=== PATIENT | male | born 1955 | race Caucasian/White ===

== ENCOUNTER → 2019-09-12 14:12 | Outpatient (CLI) | payer OTHER, SELFPAY ==
--- NOTE | ~2019-09-12 | XR_ITS ---
EXAMINATION: XR chest 2V DATE: 09/12/2019 14:50 INDICATION: Former smoker. TECHNIQUE: Frontal and lateral views of the chest were obtained. COMPARISON: Chest 2 views 05/12/2010 FINDINGS: The chest demonstrates clear lungs without pneumonia, pleural effusion, or pneumothorax. Th e heart size is normal. IMPRESSION: 1. No acute cardiopulmonary disease. Reviewed, dictated and finalized at location A.
--- NOTE | ~2019-09-12 | XR_ITS ---
XR_CERV2-3V_CR DATE: 09/12/2019 14:50 INDICATION: Radiculopathy, cervical region TECHNIQUE: Standing AP, open-mouth, lateral and swimmer views COMPARISON: None FINDINGS: C1 and C2 are normally aligned and the odontoid process is intact. No fracture or dislocati on or locked facet or prevertebral soft tissue swelling is evident. There is prominent anterior degen erative spurring of the C3, C4 and C5 as well as C6 vertebral bodies. The interspaces are well preser suly. IMPRESSION: Degenerative spurring without significant interspace compromise Reviewed, dictated and finalized at Location A. Reviewed, dictated and finalized at location A.
== END ==
PROVIDERS: PCP Family Medicine; Visit Provider Physician Assistant
DX: M54.12 Radiculopathy, cervical region (principal); Z87.891 Personal history of nicotine dependence; M77.8 Other enthesopathies, not elsewhere classified; M46.02 Spinal enthesopathy, cervical region
CPT/HCPCS: 71046; 72040

== ENCOUNTER 2019-12-06 16:44 | Emergency (ER) | payer OTHER, SELFPAY ==
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
[2019-12-06 17:15] VITALS: BP 164/76; PULSE 71; RESP 16; TEMP 36.7; O2SAT 100
[2019-12-06] MEDS: TETANUS,DIPHTHERIA,AC PERTUSSIS ADULT (0.5 ML) BOOSTRIX IM (18:02)
== END 2019-12-06 18:16 | disposition home or self-care (01) ==
PROVIDERS: Emergency Provider Nurse Practitioner Family; PCP Family Medicine
DX: S61.411A Laceration without foreign body of right hand, initial encounter (principal); W25.XXXA Contact with sharp glass, initial encounter; Z23 Encounter for immunization; I10 Essential (primary) hypertension; E78.5 Hyperlipidemia, unspecified; E78.00 Pure hypercholesterolemia, unspecified; R73.03 Prediabetes
CPT/HCPCS: 90471; 90715; 99213; G0463

== ENCOUNTER 2024-02-10 03:56 | Emergency (ER) | payer MEDICARE, OTHER, SELFPAY ==
--- OUTSIDE RECORDS SUMMARY | 2024-02-10 03:59 | XMS_ITS | Data Portability ---
Author Organization [facility] Mccullough Cli fior Elisa, zzOHIREN [facility] IP Address [address] [place] [address] Assessment No assessment recorded. Plan of Treatment Reminders Order Date Submit Date Provider Last Modified By Organization Details Last Modified Time Details Appointments None recorded. Lab None recorded. Referral None recorded. Procedures None recorded. Surgeries None recorded. Imaging None recorded. Medication Orders permethrin 5 % topical cream [address] [facility][id number], [address] [place] [address], [id number], 4 12:18:04 triamcinolo ne acetonide 0.1 % topical cream [address] [facility] #[id number], [address] [place] [address], [id number], 4 12:18:06 hydroxyzine HCl 25 mg tablet [address] [facility] #[id number], [address] [place] [address], [id number], 4 12:18:03 dexamethaso ne sodium phosphate 4 mg/mL injection solution 2023 024 [email or web address] Not available 4 18:38:58 Depo-Medrol 40 mg/mL suspension for injection 2023 024 [email or web address] Not available 4 18:39:40 Patient TargetsNo targets recorded. Patient Instructions Encounter Date Encounter Id Patient Instructions Last Modified By Organization Details Last Modified Time 04/12/2023 [id number] bedbugs: care instructions [email or web address] Not available 04/12/2023 12:22:08 - Only use mild, unscented products. Avoid scratching. Cool compresses. Home cleaning measures reviewed. - Avoid heat, stress, or strenuous activity. - Take hydroxyzine for itching. - Gave at clinic. Patient tolerated well. - RTC for follow up as needed for any concerns. [email or web address] Not available 04/12/2023 12:27:02 Reason for Referral None Reported. Procedures Surgical History Date Name Laterality Status Provider Name and Address Organization Details Recorded Time Orthopedic Surgery completed Reba Aquino RN [facility] 04/12/2023 12:09:04 Imaging Results None recorded. Procedure Notes None recorded. Medical Equipment None Reported. Allergies No known drug allergies Medications Name Sig Start Date Stop Date Status Note LastModified by Organization Details LastModified Time Depo-Medrol 40 mg/mL suspension for injection Take 40 mg by injection route. 2023 active Not Available Not Available Not Avai lable permethrin 5 % topical cream APPLY (THOROUGHLY MASSAGE INTO SKIN FROM HEAD TO SOLES OF FEET) BY TOPICAL ROUTE ONCE LEAVE ON FOR 8-14 HR, THEN REMOVE BY THOROUGH WASHING. May repeat in 2 weeks. 2023 active Not Available Not Available Not Avai lable triamcinolon e acetonide 0.1 % topical cream APPLY THIN LAYER TOPICALLY TO THE AFFECTED AREA TWICE DAILY FOR UP TO 2 WEEKS NEEDED active Not Available Not Available No t Available lisinopril 30 mg tablet TAKE 1 TABLET BY MOUTH DAILY active Not Available Not Available Not Available hydroxyzine HCl 25 mg tablet Take 1 tablet 3 times a day by oral route as needed. 2023 active Not Available Not Available Not Avai lable dexamethason e sodium phosphate 4 mg/mL injection solution Inject 4 mg by intramuscul ar route. 2023 active Not Available Not Available Not Avai lable Vitals Date Recorded Body height Body mass index (BMI) Body weight Body temperature Heart rate Respiratory rate Oxygen saturation Oxygen saturation in Arterial blood by Pulse oximetry Systolic blood pressure Diastolic blood pressure Provider Name and Address Organization Details Last Updated DateTime 170.18 cm 32.1 kg/m2 74355.4 4 g 98.2 [degF] 58 /min 18 /min 96 % 96 % 191 mm[Hg] 91 mm[Hg] Reba Aquino RN [facility] Elisa 12:08:22 Social History None recorded. Functional Status None recorded. Mental Status None recorded. Family History Nothing Reported. Medical History No medical history recorded. Past Encounters Encounter ID Performer Location Encounter Start Date Encounter Closed Date Diagnosis/Indication Diagnosis SNOMED-CT Code Diagnosis ICD10 Code [id number] CANDELARIA CHACON NP [facility] [address] [facility] [place] [address] 04/12/2023 11:21:06 04/13/2023 10:23:53 Infestation by bed bug 97428048 B88.8 Health Concerns Section Related Observation LastModified by Organization Detai ls LastModified Time None Recorded Concern Status LastModified by Organization Details LastModified Time None Recorded Advance Directives Directive None Recorded Payers Encounter Date Sequence Insurance Name Policy Number Policy Mayo Covered Member ID Mayo Member ID Guarantor Name 04/12/2023 1 MEDICARE-[place] (MEDICARE) Justo Cm Sr [id number] Justo Cm 04/12/2023 2 [facility] (MEDICARE SUPPLEMENT) Justo Cm [id number] Justo Cm Notes Date Note Type Note Provider Name and Address Organization Details Recorded Time 04/12/2023 text/html 67 yo male presents to clinic with c/o rash and pruritis. Sx started 2 days ago. Believes that he may be having hives from laundry detergent. CANDELARIA CHACON NP [address], [place], [address], [facility] 04/12/2023 12:47:30
[2024-02-10 04:01] VITALS: BP 144/76; PULSE 68; RESP 20; TEMP 36.5; O2SAT 98
== END 2024-02-10 06:08 | disposition left against medical advice (07) ==
LOC: ANHED 05:38
PROVIDERS: PCP Nurse Practitioner Family
DX: S29.9XXA Unspecified injury of thorax, initial encounter (principal); W10.9XXA Fall (on) (from) unspecified stairs and steps, initial encounter
CPT/HCPCS: 99199

== ENCOUNTER 2024-11-22 11:35 | Emergency (ER) | payer MEDICARE, SELFPAY ==
[2024-11-22] VITALS (8 sets, daily range): BP systolic 169–215; BP diastolic 86–99; PULSE 56–65; RESP 13–20; TEMP 36.7–36.8; O2SAT 97–98
--- NOTE | ~2024-11-22 | XR_ITS ---
EXAMINATION: XR chest 1V portable 11/22/2024 14:47 INDICATION: Shortness of breath PROCEDURE: AP portable chest COMPARISON: 09/12/2019 FINDINGS: The lungs are clear. The cardiomediastinal silhouette is within normal limits. There are no pleural effusions. There is no pneumothorax suspected. IMPRESSION: 1: NO ACUTE CARDIOPULMONARY DISEASE. Reviewed, dictated and finalized at location O.
--- NOTE | 2024-11-22 11:44 | ECG_ITS ---
Test Date: 2024-11-22 11:48:07 Measurements Intervals Mary Esther Rate: 62 P: 20 IN: 134 QRS: 36 QRSD: 89 T: 63 QT: 420 QTc: 429 Interpretive Statements SINUS RHYTHM WITH SINUS ARRHYTHMIA possibel old septal infarct No previous ECG available for comparison Electronically Signed On 11-22-2024 15:25:46 CDT by Lit Woodson M.D.
[2024-11-22 15:03] LABS: Hematocrit 48.8 % (42.0-52.0); Hemoglobin 17.1 g/dL (14.0-18.0); Immature Granulocyte Percent A 0.8 % (0-0.5); Lymphocytes Absolute Auto 1.72 K/mm3 (0.9-3.2); Mean Corpuscular HGB Conc 35.0 g/dl (32-36); Mean Corpuscular Hemoglobin 32.5 pg (26-34); Mean Corpuscular Volume 92.8 fl (80-100); Nucleated Red Blood Cells Absolute Auto 0.000 K/mm3 (0.0-0.012); Nucleated Red Blood Cells Perc 0.0 % (0.0-0.2); Platelet Count Result 210 k/mm3 (150-375); Red Blood Count 5.26 M/mm3 (4.6-6.20); White Blood Count 7.9 K/mm3 (4.5-10.0)
[2024-11-22 15:13] LABS: Alanine Aminotransferase 97 U/L (6-50); Albumin Level 4.4 g/dL (3.5-5.1); Alkaline Phosphatase 89 U/L (38-126); Anion Gap 9 mmol/L (4-12); Aspartate Amino Transferase 95 U/L (17-59); Bilirubin,Total 1.6 mg/dL (0.2-1.3); Blood Urea Nitrogen 9 mg/dL (9-20); Calcium 9.3 mg/dL (8.4-10.2); Carbon Dioxide 26 mmol/L (22-30); Chloride 100 mmol/L (98-107); Estimated CRCL calculation 105 ml/min; Estimated Glomerular Filt Rate > 60; Glucose 102 mg/dL (65-110); Potassium 4.4 mmol/L (3.4-5.0); Sodium 135 mmol/L (137-145); Total Protein 8.0 g/dL (6.3-8.2)
--- NOTE | 2024-11-22 15:16 | ED_ITS ---
HPI - General Adult General Chief complaint: Shortness of Breath/Dyspnea Stated complaint: SOB Time Seen by Provider: 11/22/24 14:33 History of Present Illness HPI narrative: 68-year-old male presents emergency department for evaluation for shortness breath has been worsening since yesterday. Patient states the shortness breath is worsened with exertion. Patient denies any associated chest pain with this. Patient does have a history of COPD and does report he quit smoking in 2019. Patient denies any prior cardiac history. Patient denies any falls or injury. Patient denies any new lower extremity tenderness or swelling. 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 History of nicotine dependence Hypercholesterolemia Obesity (BMI 30.0-34.9) Prediabetes Surgical History Surgical History H/O eye surgery History of orthopedic surgery Left ankle due to fracture Family History Family History Sibling Diabetes mellitus Father Hypertension Mother Hypertension Grandparent Family history of cardiovascular disease, Onset Age: 62 Acute myocardial infarction Other No family history of malignant neoplasm Social History Social History Smoking packs per day: 1 Smoking cigarettes per day: 20.0 Years smoked: 45 Smoking pack-years: 45.00 Smoking status: Former smoker Tobacco type: cigarettes Alcohol intake: current Substance use type: does not use Exam 2 Narrative: APPEARANCE: Well appearing, no pain, no distress, well-nourished. HEAD: normocephalic, atraumatic. EYES: PERRLA/EOMI, conjunctivae clear. NOSE: Normal no drainage EARS:TMS clear with good light reflex. THROAT: Pharynx clear, no exudate. NECK: Supple. No adenopathy, no masses. RESPIRATORY: Decreased lung sounds bilaterally CARDIOVASCULAR: Regular rate and rhythm without murmurs rubs or gallops. ABDOMINAL: Soft, nontender, nondistended, normal bowel sounds MUSCULOSKELETAL: Moves all extremities. Strength/ROM intact, No edema, No calf tenderness. NEURO: Alert. Cranial nerves II through XII intact. Good gait. Good coordination SKIN: Warm, dry. Normal Color Course Vital Signs Vital signs: Vital Signs Temperature 98.1 F 11/22/24 11:55 Pulse Rate 62 11/22/24 11:55 Respiratory Rate 18 11/22/24 11:55 Blood Pressure 213/92 H 11/22/24 11:55 Pulse Oximetry 98 11/22/24 11:55 Temperature 98.3 F 11/22/24 14:34 Pulse Rate 60 11/22/24 18:12 Respiratory Rate 16 11/22/24 18:12 Blood Pressure 169/94 H 11/22/24 18:12 Pulse Oximetry 98 11/22/24 18:12 Oxygen Delivery Autopap 11/22/24 14:41 Medical Decision Making MDM Narrative Medical decision making narrative: 68-year-old male presents to the emergency department for for evaluation of exertional shortness of breath. Patient does have a remote smoking history. Patient no longer smokes. Patient is afebrile no leukocytosis hemoglobin is up 2.1. Patient has a negative D-dimer. Patient has no significant acute abnormalities on his CMP his proBNP is mildly elevated at 197. Patient was negative for influenza RSV and for COVID. Chest x-ray shows no acute cardiopulmonary disease. On re-evaluation patient does feel significantly improved after the breathing treatment. Patient will be discharged home with antibiotics for suspected COPD exacerbation. Differential Diagnosis Differential Diagnosis: COVID, RSV, influenza, pneumonia, COPD Vital Signs Vital Signs: Vital Signs Temperature 98.1 F 11/22/24 11:55 Pulse Rate 62 11/22/24 11:55 Respiratory Rate 18 11/22/24 11:55 Blood Pressure 213/92 H 11/22/24 11:55 Pulse Oximetry 98 11/22/24 11:55 Temperature 98.3 F 11/22/24 14:34 Pulse Rate 60 11/22/24 18:12 Respiratory Rate 16 11/22/24 18:12 Blood Pressure 169/94 H 11/22/24 18:12 Pulse Oximetry 98 11/22/24 18:12 Oxygen Delivery Autopap 11/22/24 14:41 Lab Data Lab results reviewed: Yes I reviewed the patient's lab results. 11/22/24 14:54 11/22/24 14:54 Labs: Lab Results 11/22/24 11/22/24 Range/Units 14:42 14:54 WBC 7.9 (4.5-10.0) K/mm3 RBC 5.26 (4.6-6.20) M/mm3 Hgb 17.1 (14.0-18.0) g/dL Hct 48.8 (42.0-52.0) % MCV 92.8 (80-100) fl MCH 32.5 (26-34) pg MCHC 35.0 (32-36) g/dl RDW 12.5 (11.5-14.5) % Plt Count 210 (150-375) k/mm3 MPV 9.2 (7.4-10.4) fl Immature Gran % (Auto) 0.8 H (0-0.5) % Neut % (Auto) 61.3 (45.5-73.1) % Lymph % (Auto) 21.9 (18.3-44.2) % Garland % (Auto) 12.5 H (2.6-8.5) % Eos % (Auto) 1.8 (0-4.4) % Baso % (Auto) 1.7 H (0.2-1.2) % Lymph # (Auto) 1.72 (0.9-3.2) K/mm3 Garland # (Auto) 1.0 H (0.1-0.6) K/mm3 Eos # (Auto) 0.1 (0-0.3) K/mm3 Baso # (Auto) 0.1 (0.0-0.1) K/mm3 Abs Immat Gran (auto) 0.06 H (0.00-0.031) K/mm3 Absolute Neuts (auto) 4.8 (1.3-6.7) K/mm3 Absolute Nucleated RBC 0.000 (0.0-0.012) K/mm3 Nucleated RBC % 0.0 (0.0-0.2) % D-Dimer < 0.27 (<0.48) ug/mL Sodium 135 L (137-145) mmol/L Potassium 4.4 (3.4-5.0) mmol/L Chloride 100 (98-107) mmol/L Carbon Dioxide 26 (22-30) mmol/L Anion Gap 9 (4-12) mmol/L BUN 9 (9-20) mg/dL Creatinine 0.65 L (0.7-1.3) mg/dL Estim Creat Clear Calc 105 ml/min Estimated GFR > 60 (59 - ) Glucose 102 (65-110) mg/dL Calcium 9.3 (8.4-10.2) mg/dL Total Bilirubin 1.6 H (0.2-1.3) mg/dL AST 95 H (17-59) U/L ALT 97 H (6-50) U/L Alkaline Phosphatase 89 (38-126) U/L NT-Pro-B Natriuret Pep 197 H (19.9-100) pg/mL Total Protein 8.0 (6.3-8.2) g/dL Albumin 4.4 (3.5-5.1) g/dL Influenza A (RT-PCR) Negative (Negative) Influenza B (RT-PCR) Negative (Negative) RSV (RT-PCR) Negative (Negative) SARS-CoV-2 RNA (RT-PCR) Negative (Negative) Imaging Data My impression: Chest x-ray: No acute cardiopulmonary abnormality Radiologist's impression: Impressions Chest X-Ray 11/22/24 14:53 IMPRESSION: 1: NO ACUTE CARDIOPULMONARY DISEASE. ECG Data EKG #1: EKG Interpretation: normal rate, sinus rhythm, no ectopy, non-specific ST changes, normal QRS, normal QT and NL axis Discharge Plan Discharge Clinical Impression: Exertional shortness of breath Patient Disposition: Home Condition: Stable Instructions: Antibiotic Form, Dyspnea (ED) Additional Instructions: Antibiotic as directed until completed. Prednisone as directed for the next 5 days. Albuterol inhaler as needed for shortness of breath. Have close follow- up with your primary care physician Patient Language: Nigerien Prescriptions: New azithromycin 250 mg tablet See Rx Instructions .ROUTE .COMPLEX Qty: 6 0RF Rx Instructions: For 250 mg dose pack: take 500 mg today (day 1), then 250 mg for 4 days (days 2-5) prednisone 50 mg tablet 50 mg PO DAILY 5 Days Qty: 5 0RF albuterol sulfate 90 mcg/actuation HFA aerosol inhaler 1 puff inhalation QID Qty: 6.7 0RF amoxicillin-pot clavulanate 875-125 mg tablet 1 tablet PO Q12H 7 Days Qty: 14 0RF No Action hydrochlorothiazide 12.5 mg tablet 12.5 mg PO DAILY Qty: 90 1RF lisinopril 40 mg tablet 40 mg PO DAILY Qty: 90 1RF Follow-up/Referrals: Lamin Hernandez MD [Primary Care Provider, Family Practice]
[2024-11-22] MEDS: ALBUTEROL SULFATE NEB 2.5 MG/3 ML INH 5 MG INHALATION (15:25)
[2024-11-22 15:28] LABS: Influenza A QL RT-PCR Negative (Negative); Influenza B QL RT-PCR Negative (Negative); RSV RNA, RT-PCR Negative (Negative); SARS-CoV-2 RNA PCR Negative (Negative)
--- NOTE | 2024-11-22 15:29 | PC.NURSE ---
called lab to add on specimen.
[2024-11-22 16:44] LABS: NT Pro B Type Natriuretic Pept 197 pg/mL (19.9-100)
--- OUTSIDE RECORDS SUMMARY | 2024-11-22 17:15 | XMS_ITS | Clinical Summary ---
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 [place] [address] Ava Deutsch, CHANCERY CLERK [address] [place] [address] Health Maintenance Due Date Last Done Comments Colorectal Cancer Screening Colonoscopy (10 Years) 1956 Hepatitis C 1974 DTaP, Tdap and Td Vaccines ( 1 - Tdap) 12/03/1975 Pneumococcal Vaccine: 50+ Ye ars (1 of 1 - PCV) 2006 Zoster Vaccines (1 of 2) 2006 Annual Medicare Wellness Visit 2021 COVID-19 Vaccine (1 - 2023-2 5 season) 2024 RSV Immunization or 60+ Years (1 - 1-dose 75+ series) 12/03/2031 Meningococcal B Vaccine Aged Out No l onger eligible based on patient's age to complete this topic Meningococcal Vaccine Aged Out No kirsten nicolas eligible based on patient's age to complete this topic RSV Immunizations Under 20 Months Aged Out No longer eligible based on patient's age to complete this topic Insurance [facility] [place] [id number]
--- OUTSIDE RECORDS SUMMARY | 2024-11-22 17:15 | XMS_ITS | Clinical Summary ---
Author Organization [facility] Address [address] [place] [address] Care Team Providers Care Slope Runner Name Role Phone Unavailable Primary Care Provider Unavailabl e Social History Tobacco Use Types Packs/Day Years Used Date Smoking Tobacco: Never Assessed Sex and Gender Information Value Date Recorded Sex Assigned at Not on file Legal Sex Male 10:12 PM CDT Gender Identity Not on file Sexual Orientation Not on file Plan of Treatment Health Maintenance Due Date Last Done Comments Hepatitis C Virus (HCV) Screening 1955 TdaP Immunization 1955 Cologuard 2001 Colonoscopy 2001 Colorectal Cancer Screening 2001 Immunochemical Fecal Occult Blood 2001 Pneumococcal Immunization (5 0+ years) (1 of 1 - PCV) 2006 Zoster Immunization (1 of 2) 2006 SARS-COV-2 Immunization ( season) 2023 03/01/2021, 04/29/2020, 04/01/2020 Influenza Immunization (#1) 2024 Respiratory Syncytial Virus (RSV) Immunization (Adult) (1 - 1-dose 75+ series) 12/03/2031 Hepatitis B Immunization Aged Out No longer eligible based on patient's age to complete this topic Human Papillomavirus (HPV) Immunization Aged Out No longer eligible b ased on patient's age to complete this topic Meningococcal Immunization (ACWY) Aged Out No longer eligible b ased on patient's age to complete this topic Rotavirus Immunization Aged Out No lo nger eligible based on patient's age to complete this topic
== END 2024-11-22 18:13 | disposition home or self-care (01) ==
PROVIDERS: Emergency Provider Emergency Medicine; PCP Family Medicine
DX: R06.02 Shortness of breath (principal); J44.9 Chronic obstructive pulmonary disease, unspecified; Z87.891 Personal history of nicotine dependence; Z20.822 Contact with and (suspected) exposure to COVID-19
CPT/HCPCS: 36415; 71045; 80053; 83880; 85025; 85380; 87637; 93005; 94640; 99284